=== PATIENT | male | born 1955 | race Caucasian/White ===

== ENCOUNTER 2023-09-27 09:45 | Emergency (ER) | payer MEDICARE | END 2023-09-27 10:53 | disposition home or self-care (01) | LOC: JP.ED 09:45 | DX: H60.502 Unspecified acute noninfective otitis externa, left ear (principal); E78.00 Pure hypercholesterolemia, unspecified; Z79.2 Long term (current) use of antibiotics; Z79.899 Other long term (current) drug therapy; Z88.0 Allergy status to penicillin | CPT/HCPCS: 99282 ==